=== PATIENT | female | born 1935 | race Caucasian/White ===

== ENCOUNTER 2020-09-16 05:29 | Emergency (ER) | payer MEDICARE, SELFPAY ==
[2020-09-16] VITALS (67 sets, daily range): BP systolic 58–111; BP diastolic 38–59; PULSE 41–119; RESP 8–37; TEMP 35.2–36.6; O2SAT 65–99; BMI 22.4
--- NOTE | 2020-09-16 05:39 | ED.GENADULT ---
HPI - General Adult <Geoff Agosto DO - Last Filed: 09/16/20 19:01> General Chief complaint: GI Bleed Stated complaint: Rectal Bleeding Time Seen by Provider: 09/16/20 05:37 History of Present Illness HPI narrative: Patient is an 85-year-old female. She is on anticoagulation secondary to pacemaker placement/AFib. She does have a history of diverticulosis. Has also had hemorrhoids in the past. Patient was brought to the emergency department this morning by EMS after they were called to the hotel room where she was staying by the patient's daughter who was with her. Overnight the patient got up to use the restroom and per report had several episodes of diarrhea of which when the lights were turned on were bright red and also had dark colored stools as well. The bloody stools continued so the daughter called EMS. Upon EMS arrival they stated that the patient was alert and oriented however was hypotensive with systolic blood pressures in the 70s. They were unable to obtain IV access after 3 tries. Patient has had bloody stool in the ambulance. She denies chest pain. Denies shortness of breath. Related Data Allergies Allergy/AdvReac Type Severity Reaction Status Date / Time scopolamine AdvReac Hallucinati Verified 09/16/20 10:28 ng Review of Systems <Geoff Agosto DO - Last Filed: 09/16/20 19:01> Constitutional Constitutional: Denies fever(s) Eyes Eyes: Reports system reviewed and no additional complaints, except as documented ENT Ears, Nose, Mouth, and Throat: Reports system reviewed and no additional complaints, except as documented Cardiovascular Cardiovascular: Reports system reviewed and no additional complaints, except as documented Respiratory Respiratory: Reports system reviewed and no additional complaints, except as documented Gastrointestinal Gastrointestinal: Denies abdominal pain, Reports hematochezia and Denies vomiting Genitourinary Genitourinary: Reports system reviewed and no additional complaints, except as documented Musculoskeletal Musculoskeletal: Reports system reviewed and no additional complaints, except as documented Integumentary/Breasts Skin/Breast: Reports system reviewed and no additional complaints, except as documented Neurologic Neurologic: Reports system reviewed and no additional complaints, except as documented Psychiatric Psychiatric: Reports system reviewed and no additional complaints, except as documented Endocrine Endocrine: Reports system reviewed and no additional complaints, except as documented Hematologic/Lymphatic On Anticoagulants: Yes Allergic/Immunologic Allergic/Immunologic: Reports system reviewed and no additional complaints, except as documented Patient History <DO Jose Garcia Last Filed: 09/16/20 19:01> Medical History Congestive heart failure COPD (chronic obstructive pulmonary disease) Diverticulosis Hypertension Psoriasis Surgical History (Updated 09/16/20 @ 08:21 by Geoff Agosto DO) History of permanent cardiac pacemaker placement Social History Smoking Status: Former smoker Exam <DO Jose Garcia Last Filed: 09/16/20 19:01> Initial Vital Signs Initial Vital Signs: Vital Signs Temperature 96.3 F L 09/16/20 05:35 Pulse Rate 91 H 09/16/20 05:35 Respiratory Rate 22 09/16/20 05:35 Blood Pressure 87/50 L 09/16/20 05:35 Pulse Oximetry 97 09/16/20 05:35 Const General: cooperative and ill appearing [facility] Head: normal to inspection and normocephalic Eyes General: appearance normal, both eyes and all related structures Neck Neck: normal visual inspection Chest Chest: normal inspection of the chest Resp Effort & Inspection: not labored and not tachypneic Cardio Rate: regular rate Other: Paced rhythm GI Inspection: normal to inspection Palpation: soft Rectal Exam: other (Bright red blood) External Female Exam: normal external appearance Back/Spine/Pelvis Back: normal to inspection Skin Other: Patient does have wrapping bilateral lower extremities that family states is secondary to ulcerations. Neuro General: patient alert, patient awake and patient oriented x3 Extrem General: capillary refill normal Other: Upper extremities are unremarkable. Lower extremities have bandages in place secondary to posterior ulcerations per family. Psych Appearance: grossly normal <Karlee Cruz DO - Last Filed: 09/16/20 18:51> Initial Vital Signs Initial Vital Signs: Vital Signs Temperature 96.3 F L 09/16/20 05:35 Pulse Rate 91 H 09/16/20 05:35 Respiratory Rate 22 09/16/20 05:35 Blood Pressure 87/50 L 09/16/20 05:35 Pulse Oximetry 97 09/16/20 05:35 Procedures <DO Jose Garcia Last Filed: 09/16/20 19:01> Central Line Placement Right Femoral: Time Out Performed: Yes Patient Placed on Monitor/Pulse Ox: Yes MD Prep: mask, gown and gloves Central Line Prep: Povidone-Iodine 1% and sterile drapes applied Local Anesthetic: lidocaine 1% Amount of anesthesia used (mL): 4 Ultrasound Used for Placement: Yes Central Line Lumen Inserted: triple Post Procedure: sutured in place, good blood return, all ports aspirated, flushed, capped and sterile dressing applied Patient Tolerated Procedure: Well Complications: none Course <Geoff Agosto DO - Last Filed: 09/16/20 19:01> Orders Ordered: ED Orders 09/16/20 10:02 ABG [Arterial Blood Gas] Stat Discontinued Medications Furosemide (Furosemide 40 Mg/4 Ml Vial) 20 mg IV NOW ONE Stop: 09/16/20 09:41 Last Admin: 09/16/20 10:36 Dose: Not Given Documented by: MARIELY Sodium Chloride (Normal Saline 0.9%) 1,000 mls @ 125 mls/hr IV CONT ROZINA Last Infusion: 09/16/20 10:35 Dose: 0 mls/hr Documented by: Infusion: 09/16/20 10:34 Dose: 0 mls/hr Documented by: Admin: 09/16/20 08:30 Dose: 125 mls/hr Documented by: MARIELY Sodium Chloride (Normal Saline 0.9%) 1,000 mls @ 1,000 mls/hr IV BOLUS ONE Stop: 09/16/20 07:00 Last Infusion: 09/16/20 07:20 Dose: 0 mls/hr Documented by: Admin: 09/16/20 05:50 Dose: 1,000 mls/hr Documented by: MAIKOL Prothrombin Complex Concent ( Human) 2,000 unit/Miscellaneous 80 mls @ 440.892 mls/hr IV NOW ONE; Protocol Stop: 09/16/20 07:11 Last Infusion: 09/16/20 07:50 Dose: 0 unit/kg/min, 0 mls/hr Documented by: Admin: 09/16/20 07:30 Dose: 3 unit/kg/min, 440.892 mls/hr Documented by: MARIELY Norepinephrine Bitartrate 4 mg (/ Dextrose) 254 mls @ 30.48 mls/hr IV TITRATE ROZINA; Protocol Last Titration: 09/16/20 10:35 Dose: 0 mcg/min, 0 mls/hr Documented by: Titration: 09/16/20 10:35 Dose: 0 mcg/min, 0 mls/hr Documented by: Admin: 09/16/20 08:58 Dose: 5 mcg/min, 19.05 mls/hr Documented by: MARIELY Morphine Sulfate (Morphine 2 Mg/Ml Inj) 2 mg IV NOW ONE Stop: 09/16/20 09:10 Last Admin: 09/16/20 09:00 Dose: 2 mg Documented by: MARIELY Morphine Sulfate (Morphine 2 Mg/Ml Inj) 2 mg IV NOW ONE Stop: 09/16/20 10:00 Last Admin: 09/16/20 10:03 Dose: 2 mg Documented by: MARIELY Vital Signs Vital signs: Vital Signs - 8 hr 09/16/20 05:35 09/16/20 05:36 09/16/20 05:46 Temperature 96.3 F L Pulse Rate 91 H 58 L 91 H Respiratory Rate 22 12 Blood Pressure 87/50 L 85/52 L 82/53 L Pulse Oximetry 97 93 09/16/20 05:50 09/16/20 06:00 09/16/20 06:10 Temperature Pulse Rate 93 H 96 H 99 H Respiratory Rate 12 20 26 H Blood Pressure 87/50 L 78/47 L 75/48 L Pulse Oximetry 09/16/20 06:20 09/16/20 06:30 09/16/20 06:36 Temperature Pulse Rate 97 H 91 H 96 H Respiratory Rate 16 17 37 H Blood Pressure 78/53 L 70/38 L 71/38 L Pulse Oximetry 09/16/20 06:40 09/16/20 06:45 09/16/20 06:50 Temperature Pulse Rate 94 H 108 H 98 H Respiratory Rate 21 23 27 H Blood Pressure 72/43 L 58/39 L 65/44 L Pulse Oximetry 09/16/20 06:55 09/16/20 07:00 09/16/20 07:01 Temperature 96.4 F L Pulse Rate 89 105 H 72 Respiratory Rate 30 H 24 18 Blood Pressure 62/41 L 65/48 L 65/48 L Pulse Oximetry 09/16/20 07:03 09/16/20 07:05 09/16/20 07:10 Temperature 96.4 F L Pulse Rate 87 87 119 H Respiratory Rate 17 24 32 H Blood Pressure 65/48 L 73/44 L 67/43 L Pulse Oximetry 09/16/20 07:15 09/16/20 07:16 09/16/20 07:20 Temperature 96.6 F L Pulse Rate 104 H 97 H 99 H Respiratory Rate 29 H 21 22 Blood Pressure 69/44 L 69/44 L 66/44 L Pulse Oximetry 09/16/20 07:25 09/16/20 07:30 09/16/20 07:37 Temperature Pulse Rate 94 H 91 H 95 H Respiratory Rate 19 18 20 Blood Pressure 68/41 L 66/45 L 84/45 L Pulse Oximetry 09/16/20 07:41 09/16/20 07:45 09/16/20 07:47 Temperature 95.3 F L Pulse Rate 86 86 84 Respiratory Rate 21 22 18 Blood Pressure 70/44 L 86/40 L 86/40 L Pulse Oximetry 80 L 09/16/20 07:50 09/16/20 07:55 09/16/20 08:00 Temperature Pulse Rate 89 86 95 H Respiratory Rate 17 20 20 Blood Pressure 91/46 L 78/53 L Pulse Oximetry 89 L 09/16/20 08:01 09/16/20 08:06 09/16/20 08:10 Temperature Pulse Rate 88 99 H Respiratory Rate 23 14 15 Blood Pressure 75/46 L 82/53 L 80/50 L Pulse Oximetry 09/16/20 08:15 09/16/20 08:17 09/16/20 08:20 Temperature Pulse Rate 89 91 H 86 Respiratory Rate 21 15 21 Blood Pressure 79/50 L 74/51 L Pulse Oximetry 09/16/20 08:23 09/16/20 08:27 09/16/20 08:30 Temperature Pulse Rate 86 88 90 Respiratory Rate 15 16 20 Blood Pressure 77/49 L 77/44 L 96/55 L Pulse Oximetry 09/16/20 08:36 09/16/20 08:39 09/16/20 08:40 Temperature 95.8 F L Pulse Rate 88 98 H 93 H Respiratory Rate 20 17 16 Blood Pressure 75/47 L 74/52 L 74/52 L Pulse Oximetry 09/16/20 08:42 09/16/20 08:45 09/16/20 08:46 Temperature 95.8 F L Pulse Rate 90 90 83 Respiratory Rate 19 14 17 Blood Pressure 77/42 L 75/44 L Pulse Oximetry 09/16/20 08:50 09/16/20 08:54 09/16/20 08:55 Temperature Pulse Rate 92 H 90 92 H Respiratory Rate 14 9 L 8 L Blood Pressure 75/48 L 71/47 L 78/49 L Pulse Oximetry 99 09/16/20 09:00 09/16/20 09:05 09/16/20 09:10 Temperature 96.1 F L Pulse Rate 83 75 81 Respiratory Rate 16 16 15 Blood Pressure 80/51 L 90/53 L 89/41 L Pulse Oximetry 79 L 82 L 78 L 09/16/20 09:15 09/16/20 09:20 09/16/20 09:21 Temperature 96.1 F L Pulse Rate 87 83 80 Respiratory Rate 16 22 16 Blood Pressure 100/44 L 91/50 L Pulse Oximetry 83 L 81 L 88 L 09/16/20 09:25 09/16/20 09:30 09/16/20 09:35 Temperature Pulse Rate 41 L 85 82 Respiratory Rate 12 20 13 Blood Pressure 89/51 L 94/51 L 100/59 L Pulse Oximetry 78 L 73 L 96 09/16/20 09:40 09/16/20 09:44 09/16/20 09:45 Temperature 96.1 F L 98 F Pulse Rate 79 88 Respiratory Rate 15 14 Blood Pressure 94/55 L Pulse Oximetry 09/16/20 09:50 09/16/20 09:55 09/16/20 10:00 Temperature Pulse Rate 91 H 90 90 Respiratory Rate 12 16 19 Blood Pressure 87/51 L 99/50 L 111/55 L Pulse Oximetry 65 L 71 L 09/16/20 10:05 09/16/20 10:10 09/16/20 10:15 Temperature 95.9 F L Pulse Rate 84 88 87 Respiratory Rate 17 11 L 17 Blood Pressure 85/47 L 98/53 L 88/53 L Pulse Oximetry 09/16/20 10:20 Temperature Pulse Rate 92 H Respiratory Rate 15 Blood Pressure 88/53 L Pulse Oximetry <Karlee Cruz, DO - Last Filed: 09/16/20 18:51> Orders Ordered: ED Orders 09/16/20 10:02 ABG [Arterial Blood Gas] Stat Discontinued Medications Furosemide (Furosemide 40 Mg/4 Ml Vial) 20 mg IV NOW ONE Stop: 09/16/20 09:41 Last Admin: 09/16/20 10:36 Dose: Not Given Documented by: MARIELY Sodium Chloride (Normal Saline 0.9%) 1,000 mls @ 125 mls/hr IV CONT ROZINA Last Infusion: 09/16/20 10:35 Dose: 0 mls/hr Documented by: Infusion: 09/16/20 10:34 Dose: 0 mls/hr Documented by: Admin: 09/16/20 08:30 Dose: 125 mls/hr Documented by: MARIELY Sodium Chloride (Normal Saline 0.9%) 1,000 mls @ 1,000 mls/hr IV BOLUS ONE Stop: 09/16/20 07:00 Last Infusion: 09/16/20 07:20 Dose: 0 mls/hr Documented by: Admin: 09/16/20 05:50 Dose: 1,000 mls/hr Documented by: MAIKOL Prothrombin Complex Concent ( Human) 2,000 unit/Miscellaneous 80 mls @ 440.892 mls/hr IV NOW ONE; Protocol Stop: 09/16/20 07:11 Last Infusion: 09/16/20 07:50 Dose: 0 unit/kg/min, 0 mls/hr Documented by: Admin: 09/16/20 07:30 Dose: 3 unit/kg/min, 440.892 mls/hr Documented by: MARIELY Norepinephrine Bitartrate 4 mg (/ Dextrose) 254 mls @ 30.48 mls/hr IV TITRATE ROZINA; Protocol Last Titration: 09/16/20 10:35 Dose: 0 mcg/min, 0 mls/hr Documented by: Titration: 09/16/20 10:35 Dose: 0 mcg/min, 0 mls/hr Documented by: Admin: 09/16/20 08:58 Dose: 5 mcg/min, 19.05 mls/hr Documented by: MARIELY Morphine Sulfate (Morphine 2 Mg/Ml Inj) 2 mg IV NOW ONE Stop: 09/16/20 09:10 Last Admin: 09/16/20 09:00 Dose: 2 mg Documented by: MARIELY Morphine Sulfate (Morphine 2 Mg/Ml Inj) 2 mg IV NOW ONE Stop: 09/16/20 10:00 Last Admin: 09/16/20 10:03 Dose: 2 mg Documented by: MARIELY Vital Signs Vital signs: Vital Signs - 8 hr 09/16/20 05:35 09/16/20 05:36 09/16/20 05:46 Temperature 96.3 F L Pulse Rate 91 H 58 L 91 H Respiratory Rate 22 12 Blood Pressure 87/50 L 85/52 L 82/53 L Pulse Oximetry 97 93 09/16/20 05:50 09/16/20 06:00 09/16/20 06:10 Temperature Pulse Rate 93 H 96 H 99 H Respiratory Rate 12 20 26 H Blood Pressure 87/50 L 78/47 L 75/48 L Pulse Oximetry 09/16/20 06:20 09/16/20 06:30 09/16/20 06:36 Temperature Pulse Rate 97 H 91 H 96 H Respiratory Rate 16 17 37 H Blood Pressure 78/53 L 70/38 L 71/38 L Pulse Oximetry 09/16/20 06:40 09/16/20 06:45 09/16/20 06:50 Temperature Pulse Rate 94 H 108 H 98 H Respiratory Rate 21 23 27 H Blood Pressure 72/43 L 58/39 L 65/44 L Pulse Oximetry 09/16/20 06:55 09/16/20 07:00 09/16/20 07:01 Temperature 96.4 F L Pulse Rate 89 105 H 72 Respiratory Rate 30 H 24 18 Blood Pressure 62/41 L 65/48 L 65/48 L Pulse Oximetry 09/16/20 07:03 09/16/20 07:05 09/16/20 07:10 Temperature 96.4 F L Pulse Rate 87 87 119 H Respiratory Rate 17 24 32 H Blood Pressure 65/48 L 73/44 L 67/43 L Pulse Oximetry 09/16/20 07:15 09/16/20 07:16 09/16/20 07:20 Temperature 96.6 F L Pulse Rate 104 H 97 H 99 H Respiratory Rate 29 H 21 22 Blood Pressure 69/44 L 69/44 L 66/44 L Pulse Oximetry 09/16/20 07:25 09/16/20 07:30 09/16/20 07:37 Temperature Pulse Rate 94 H 91 H 95 H Respiratory Rate 19 18 20 Blood Pressure 68/41 L 66/45 L 84/45 L Pulse Oximetry 09/16/20 07:41 09/16/20 07:45 09/16/20 07:47 Temperature 95.3 F L Pulse Rate 86 86 84 Respiratory Rate 21 22 18 Blood Pressure 70/44 L 86/40 L 86/40 L Pulse Oximetry 80 L 09/16/20 07:50 09/16/20 07:55 09/16/20 08:00 Temperature Pulse Rate 89 86 95 H Respiratory Rate 17 20 20 Blood Pressure 91/46 L 78/53 L Pulse Oximetry 89 L 09/16/20 08:01 09/16/20 08:06 09/16/20 08:10 Temperature Pulse Rate 88 99 H Respiratory Rate 23 14 15 Blood Pressure 75/46 L 82/53 L 80/50 L Pulse Oximetry 09/16/20 08:15 09/16/20 08:17 09/16/20 08:20 Temperature Pulse Rate 89 91 H 86 Respiratory Rate 21 15 21 Blood Pressure 79/50 L 74/51 L Pulse Oximetry 09/16/20 08:23 09/16/20 08:27 09/16/20 08:30 Temperature Pulse Rate 86 88 90 Respiratory Rate 15 16 20 Blood Pressure 77/49 L 77/44 L 96/55 L Pulse Oximetry 09/16/20 08:36 09/16/20 08:39 09/16/20 08:40 Temperature 95.8 F L Pulse Rate 88 98 H 93 H Respiratory Rate 20 17 16 Blood Pressure 75/47 L 74/52 L 74/52 L Pulse Oximetry 09/16/20 08:42 09/16/20 08:45 09/16/20 08:46 Temperature 95.8 F L Pulse Rate 90 90 83 Respiratory Rate 19 14 17 Blood Pressure 77/42 L 75/44 L Pulse Oximetry 09/16/20 08:50 09/16/20 08:54 09/16/20 08:55 Temperature Pulse Rate 92 H 90 92 H Respiratory Rate 14 9 L 8 L Blood Pressure 75/48 L 71/47 L 78/49 L Pulse Oximetry 99 09/16/20 09:00 09/16/20 09:05 09/16/20 09:10 Temperature 96.1 F L Pulse Rate 83 75 81 Respiratory Rate 16 16 15 Blood Pressure 80/51 L 90/53 L 89/41 L Pulse Oximetry 79 L 82 L 78 L 09/16/20 09:15 09/16/20 09:20 09/16/20 09:21 Temperature 96.1 F L Pulse Rate 87 83 80 Respiratory Rate 16 22 16 Blood Pressure 100/44 L 91/50 L Pulse Oximetry 83 L 81 L 88 L 09/16/20 09:25 09/16/20 09:30 09/16/20 09:35 Temperature Pulse Rate 41 L 85 82 Respiratory Rate 12 20 13 Blood Pressure 89/51 L 94/51 L 100/59 L Pulse Oximetry 78 L 73 L 96 09/16/20 09:40 09/16/20 09:44 09/16/20 09:45 Temperature 96.1 F L 98 F Pulse Rate 79 88 Respiratory Rate 15 14 Blood Pressure 94/55 L Pulse Oximetry 09/16/20 09:50 09/16/20 09:55 09/16/20 10:00 Temperature Pulse Rate 91 H 90 90 Respiratory Rate 12 16 19 Blood Pressure 87/51 L 99/50 L 111/55 L Pulse Oximetry 65 L 71 L 09/16/20 10:05 09/16/20 10:10 09/16/20 10:15 Temperature 95.9 F L Pulse Rate 84 88 87 Respiratory Rate 17 11 L 17 Blood Pressure 85/47 L 98/53 L 88/53 L Pulse Oximetry 09/16/20 10:20 Temperature Pulse Rate 92 H Respiratory Rate 15 Blood Pressure 88/53 L Pulse Oximetry Medical Decision Making <Geoff Agosto, - Last Filed: 09/16/20 19:01> Lab Data Lab results reviewed: Yes I reviewed the patient's lab results. Result diagrams: 09/16/20 08:53 09/16/20 08:53 Labs: Lab Results 09/16/20 09/16/20 09/16/20 Range/Units 06:00 06:00 06:20 WBC 6.7 (4.5-11.0) X10^3/uL RBC 3.66 L (4.0-5.2) X10^6/uL Hgb 9.4 L (12.0-16.0) g/dL Hct 31.3 L (36-46) % MCV 85.4 (80-100) fL MCH 25.6 L (26-34) PG MCHC 30.0 (30-36) % RDW 21.1 H (11.6-14.8) % Plt Count 124 L (150-400) X10^3/uL Neut % (Auto) Not Reportable Lymph % (Auto) Not Reportable [place] % (Auto) Not Reportable Eos % (Auto) Not Reportable Baso % (Auto) Not Reportable Lymph # (Auto) Not Reportable [place] # (Auto) Not Reportable Baso # (Auto) Not Reportable Total Counted 100 Seg Neutrophils % 74.0 H (38-70) % Lymphocytes % (Manual) 17.0 L (25-45) % Monocytes % (Manual) 9.0 (2-11) % Neutrophils # (Manual) [id number] [id number]) /uL Hypersegmented Neuts 2+ RBC Morphology See below Hypochromasia 1+ H Anisocytosis 2+ H PT 51.1 H (10.1-12.7) SECONDS INR 4.3 H (0.9-1.3) APTT 41 H (26.4-36.2) SECONDS ABG pH (7.35-7.45) ABG pCO2 (35-45) mmHg ABG pO2 (80-100) mmHg ABG HCO3 (22-26) mmol/L ABG Total CO2 (21-31) mmol/L ABG O2 Saturation (95-100) % ABG Base Excess (-2-2) mmol/L FiO2 Sodium 140 (137-145) mmol/L Potassium 5.2 H (3.4-5.1) mmol/L Chloride 112 H (98-107) mmol/L Carbon Dioxide 21 L (22-32) mmol/L BUN 42 H (7-17) mg/dL Creatinine 1.05 H (0.52-1.04) mg/dL Estimated GFR 49.7 L (>60) mL/min BUN/Creatinine Ratio 40.0 H (6-22) Glucose 92 (80-110) mg/dL Lactate (0.7-2.1) mmol/L Calcium 7.9 L (8.4-10.2) mg/dL Total Bilirubin 0.8 (0.2-1.3) mg/dL AST 27 (14-36) IU/L ALT 11 (<35) IU/L Alkaline Phosphatase 105 (38-126) U/L NT-Pro-B Natriuret Pep (<450) pg/mL Total Protein 5.5 L (6.3-8.2) g/dL Albumin 2.4 L (3.5-5.0) g/dL Globulin 3.1 (1.7-4.1) g/dL Albumin/Globulin Ratio 0.8 L (1.0-2.8) Lipase 70 (23-300) U/L Urine Color Urine Appearance Urine pH (4.5-8.0) Ur Specific [place] (1.000-1.035) Urine Protein (Negative) Urine Glucose (UA) (Negative) g/dL Urine Ketones (NEGATIVE) Urine Occult Blood (Negative) Urine Nitrate (Negative) Urine Bilirubin (NEGATIVE) Urine Urobilinogen (0.2) E.U./dL Ur Leukocyte Esterase (NEGATIVE) Urine RBC (0-5/HPF) Urine WBC (0-5/HPF) Ur Squamous Epith Cells (0-5/HPF) Amorphous Sediment Urine Bacteria (None) Hyaline Casts (None) Urine Yeast (None) Ur Culture Indicated? SARS-CoV-2 (PCR) (Negative) Blood Type Antibody Screen Crossmatch 09/16/20 09/16/20 09/16/20 Range/Units 06:20 06:20 08:01 WBC (4.5-11.0) X10^3/uL RBC (4.0-5.2) X10^6/uL Hgb (12.0-16.0) g/dL Hct (36-46) % MCV (80-100) fL MCH (26-34) PG MCHC (30-36) % RDW (11.6-14.8) % Plt Count (150-400) X10^3/uL Neut % (Auto) Lymph % (Auto) [place] % (Auto) Eos % (Auto) Baso % (Auto) Lymph # (Auto) [place] # (Auto) Baso # (Auto) Total Counted Seg Neutrophils % (38-70) % Lymphocytes % (Manual) (25-45) % Monocytes % (Manual) (2-11) % Neutrophils # (Manual) ([phone]) /uL Hypersegmented Neuts RBC Morphology Hypochromasia Anisocytosis PT (10.1-12.7) SECONDS INR (0.9-1.3) APTT (26.4-36.2) SECONDS ABG pH (7.35-7.45) ABG pCO2 (35-45) mmHg ABG pO2 (80-100) mmHg ABG HCO3 (22-26) mmol/L ABG Total CO2 (21-31) mmol/L ABG O2 Saturation (95-100) % ABG Base Excess (-2-2) mmol/L FiO2 Sodium (137-145) mmol/L Potassium (3.4-5.1) mmol/L Chloride (98-107) mmol/L Carbon Dioxide (22-32) mmol/L BUN (7-17) mg/dL Creatinine (0.52-1.04) mg/dL Estimated GFR (>60) mL/min BUN/Creatinine Ratio (6-22) Glucose (80-110) mg/dL Lactate 3.7 H (0.7-2.1) mmol/L Calcium (8.4-10.2) mg/dL Total Bilirubin (0.2-1.3) mg/dL AST (14-36) IU/L ALT (<35) IU/L Alkaline Phosphatase (38-126) U/L NT-Pro-B Natriuret Pep (<450) pg/mL Total Protein (6.3-8.2) g/dL Albumin (3.5-5.0) g/dL Globulin (1.7-4.1) g/dL Albumin/Globulin Ratio (1.0-2.8) Lipase (23-300) U/L Urine Color Yellow Urine Appearance Clear Urine pH 5.0 (4.5-8.0) Ur Specific [place] 1.015 (1.000-1.035) Urine Protein Trace H (Negative) Urine Glucose (UA) Negative (Negative) g/dL Urine Ketones Negative (NEGATIVE) Urine Occult Blood Trace-intact (Negative) Urine Nitrate Negative (Negative) Urine Bilirubin Negative (NEGATIVE) Urine Urobilinogen 0.2 (0.2) E.U./dL Ur Leukocyte Esterase Trace H (NEGATIVE) Urine RBC 0-1/hpf (0-5/HPF) Urine WBC 0-1/hpf (0-5/HPF) Ur Squamous Epith Cells 0-1 /hpf (0-5/HPF) Amorphous Sediment 2+ Urine Bacteria Few (2-10) H (None) Hyaline Casts 10-30/lpf (None) Urine Yeast 10-30/hpf H (None) Ur Culture Indicated? Specimen cultured SARS-CoV-2 (PCR) (Negative) Blood Type B Positive Antibody Screen Negative Crossmatch See Detail 09/16/20 09/16/20 09/16/20 Range/Units 08:04 08:53 08:53 WBC (4.5-11.0) X10^3/uL RBC (4.0-5.2) X10^6/uL Hgb 9.6 L (12.0-16.0) g/dL Hct 30.3 L (36-46) % MCV (80-100) fL MCH (26-34) PG MCHC (30-36) % RDW (11.6-14.8) % Plt Count (150-400) X10^3/uL Neut % (Auto) Lymph % (Auto) [place] % (Auto) Eos % (Auto) Baso % (Auto) Lymph # (Auto) [place] # (Auto) Baso # (Auto) Total Counted Seg Neutrophils % (38-70) % Lymphocytes % (Manual) (25-45) % Monocytes % (Manual) (2-11) % Neutrophils # (Manual) ([phone]) /uL Hypersegmented Neuts RBC Morphology Hypochromasia Anisocytosis PT (10.1-12.7) SECONDS INR (0.9-1.3) APTT (26.4-36.2) SECONDS ABG pH (7.35-7.45) ABG pCO2 (35-45) mmHg ABG pO2 (80-100) mmHg ABG HCO3 (22-26) mmol/L ABG Total CO2 (21-31) mmol/L ABG O2 Saturation (95-100) % ABG Base Excess (-2-2) mmol/L FiO2 Sodium (137-145) mmol/L Potassium (3.4-5.1) mmol/L Chloride (98-107) mmol/L Carbon Dioxide (22-32) mmol/L BUN (7-17) mg/dL Creatinine (0.52-1.04) mg/dL Estimated GFR (>60) mL/min BUN/Creatinine Ratio (6-22) Glucose (80-110) mg/dL Lactate 2.7 H (0.7-2.1) mmol/L Calcium (8.4-10.2) mg/dL Total Bilirubin (0.2-1.3) mg/dL AST (14-36) IU/L ALT (<35) IU/L Alkaline Phosphatase (38-126) U/L NT-Pro-B Natriuret Pep (<450) pg/mL Total Protein (6.3-8.2) g/dL Albumin (3.5-5.0) g/dL Globulin (1.7-4.1) g/dL Albumin/Globulin Ratio (1.0-2.8) Lipase (23-300) U/L Urine Color Urine Appearance Urine pH (4.5-8.0) Ur Specific [place] (1.000-1.035) Urine Protein (Negative) Urine Glucose (UA) (Negative) g/dL Urine Ketones (NEGATIVE) Urine Occult Blood (Negative) Urine Nitrate (Negative) Urine Bilirubin (NEGATIVE) Urine Urobilinogen (0.2) E.U./dL Ur Leukocyte Esterase (NEGATIVE) Urine RBC (0-5/HPF) Urine WBC (0-5/HPF) Ur Squamous Epith Cells (0-5/HPF) Amorphous Sediment Urine Bacteria (None) Hyaline Casts (None) Urine Yeast (None) Ur Culture Indicated? SARS-CoV-2 (PCR) Negative (Negative) Blood Type Antibody Screen Crossmatch 09/16/20 09/16/20 Range/Units 08:53 10:02 WBC (4.5-11.0) X10^3/uL RBC (4.0-5.2) X10^6/uL Hgb (12.0-16.0) g/dL Hct (36-46) % MCV (80-100) fL MCH (26-34) PG MCHC (30-36) % RDW (11.6-14.8) % Plt Count (150-400) X10^3/uL Neut % (Auto) Lymph % (Auto) [place] % (Auto) Eos % (Auto) Baso % (Auto) Lymph # (Auto) [place] # (Auto) Baso # (Auto) Total Counted Seg Neutrophils % (38-70) % Lymphocytes % (Manual) (25-45) % Monocytes % (Manual) (2-11) % Neutrophils # (Manual) (4004-2805) /uL Hypersegmented Neuts RBC Morphology Hypochromasia Anisocytosis PT (10.1-12.7) SECONDS INR (0.9-1.3) APTT (26.4-36.2) SECONDS ABG pH 7.38 (7.35-7.45) ABG pCO2 36.8 (35-45) mmHg ABG pO2 87 (80-100) mmHg ABG HCO3 22 (22-26) mmol/L ABG Total CO2 23 (21-31) mmol/L ABG O2 Saturation 97 (95-100) % ABG Base Excess -3.0 L (-2-2) mmol/L FiO2 21 Sodium 138 (137-145) mmol/L Potassium 5.0 (3.4-5.1) mmol/L Chloride 113 H (98-107) mmol/L Carbon Dioxide 22 (22-32) mmol/L BUN 40 H (7-17) mg/dL Creatinine 0.93 (0.52-1.04) mg/dL Estimated GFR 57.2 L (>60) mL/min BUN/Creatinine Ratio 43.0 H (6-22) Glucose 97 (80-110) mg/dL Lactate (0.7-2.1) mmol/L Calcium 7.1 L (8.4-10.2) mg/dL Total Bilirubin (0.2-1.3) mg/dL AST (14-36) IU/L ALT (<35) IU/L Alkaline Phosphatase (38-126) U/L NT-Pro-B Natriuret Pep 6840 H (<450) pg/mL Total Protein (6.3-8.2) g/dL Albumin (3.5-5.0) g/dL Globulin (1.7-4.1) g/dL Albumin/Globulin Ratio (1.0-2.8) Lipase (23-300) U/L Urine Color Urine Appearance Urine pH (4.5-8.0) Ur Specific [place] (1.000-1.035) Urine Protein (Negative) Urine Glucose (UA) (Negative) g/dL Urine Ketones (NEGATIVE) Urine Occult Blood (Negative) Urine Nitrate (Negative) Urine Bilirubin (NEGATIVE) Urine Urobilinogen (0.2) E.U./dL Ur Leukocyte Esterase (NEGATIVE) Urine RBC (0-5/HPF) Urine WBC (0-5/HPF) Ur Squamous Epith Cells (0-5/HPF) Amorphous Sediment Urine Bacteria (None) Hyaline Casts (None) Urine Yeast (None) Ur Culture Indicated? SARS-CoV-2 (PCR) (Negative) Blood Type Antibody Screen Crossmatch MDM Narrative Medical decision making narrative: Patient's symptoms seem to have started within the past 12 hours. Had multiple episodes of of was reported be right red blood at the hotel prior to arrival here in the ER. She had obvious blood on exam. Her abdomen was soft. No chest pain. No shortness of breath. She is on anticoagulation. Given her presentation an attempt at a right IJ was made however I was unable to easily pass the wire even though according to ultrasound I was in the internal jugular vein. I then transitioned and placed a right femoral triple-lumen without incident. She was given Kcentra. Given her persistent hypotension she was started on blood. Has received 2 units packed red blood cells and a 3rd unit has been ordered and will be transfused. Dr. Suárez with General surgery will come and evaluate the patient in the emergency department. Patient is full code. Care turned over to Dr. Cruz to follow-up and disposition. <Karlee Cruz, DO - Last Filed: 09/16/20 18:51> Lab Data Labs: Lab Results 09/16/20 09/16/20 09/16/20 Range/Units 06:00 06:00 06:20 WBC 6.7 (4.5-11.0) X10^3/uL RBC 3.66 L (4.0-5.2) X10^6/uL Hgb 9.4 L (12.0-16.0) g/dL Hct 31.3 L (36-46) % MCV 85.4 (80-100) fL MCH 25.6 L (26-34) PG MCHC 30.0 (30-36) % RDW 21.1 H (11.6-14.8) % Plt Count 124 L (150-400) X10^3/uL Neut % (Auto) Not Reportable Lymph % (Auto) Not Reportable [place] % (Auto) Not Reportable Eos % (Auto) Not Reportable Baso % (Auto) Not Reportable Lymph # (Auto) Not Reportable [place] # (Auto) Not Reportable Baso # (Auto) Not Reportable Total Counted 100 Seg Neutrophils % 74.0 H (38-70) % Lymphocytes % (Manual) 17.0 L (25-45) % Monocytes % (Manual) 9.0 (2-11) % Neutrophils # (Manual) [id number] ([id number]) /uL Hypersegmented Neuts 2+ RBC Morphology See below Hypochromasia 1+ H Anisocytosis 2+ H PT 51.1 H (10.1-12.7) SECONDS INR 4.3 H (0.9-1.3) APTT 41 H (26.4-36.2) SECONDS ABG pH (7.35-7.45) ABG pCO2 (35-45) mmHg ABG pO2 (80-100) mmHg ABG HCO3 (22-26) mmol/L ABG Total CO2 (21-31) mmol/L ABG O2 Saturation (95-100) % ABG Base Excess (-2-2) mmol/L FiO2 Sodium 140 (137-145) mmol/L Potassium 5.2 H (3.4-5.1) mmol/L Chloride 112 H (98-107) mmol/L Carbon Dioxide 21 L (22-32) mmol/L BUN 42 H (7-17) mg/dL Creatinine 1.05 H (0.52-1.04) mg/dL Estimated GFR 49.7 L (>60) mL/min BUN/Creatinine Ratio 40.0 H (6-22) Glucose 92 (80-110) mg/dL Lactate (0.7-2.1) mmol/L Calcium 7.9 L (8.4-10.2) mg/dL Total Bilirubin 0.8 (0.2-1.3) mg/dL AST 27 (14-36) IU/L ALT 11 (<35) IU/L Alkaline Phosphatase 105 (38-126) U/L NT-Pro-B Natriuret Pep (<450) pg/mL Total Protein 5.5 L (6.3-8.2) g/dL Albumin 2.4 L (3.5-5.0) g/dL Globulin 3.1 (1.7-4.1) g/dL Albumin/Globulin Ratio 0.8 L (1.0-2.8) Lipase 70 (23-300) U/L Urine Color Urine Appearance Urine pH (4.5-8.0) Ur Specific [place] (1.000-1.035) Urine Protein (Negative) Urine Glucose (UA) (Negative) g/dL Urine Ketones (NEGATIVE) Urine Occult Blood (Negative) Urine Nitrate (Negative) Urine Bilirubin (NEGATIVE) Urine Urobilinogen (0.2) E.U./dL Ur Leukocyte Esterase (NEGATIVE) Urine RBC (0-5/HPF) Urine WBC (0-5/HPF) Ur Squamous Epith Cells (0-5/HPF) Amorphous Sediment Urine Bacteria (None) Hyaline Casts (None) Urine Yeast (None) Ur Culture Indicated? SARS-CoV-2 (PCR) (Negative) Blood Type Antibody Screen Crossmatch 09/16/20 09/16/20 09/16/20 Range/Units 06:20 06:20 08:01 WBC (4.5-11.0) X10^3/uL RBC (4.0-5.2) X10^6/uL Hgb (12.0-16.0) g/dL Hct (36-46) % MCV (80-100) fL MCH (26-34) PG MCHC (30-36) % RDW (11.6-14.8) % Plt Count (150-400) X10^3/uL Neut % (Auto) Lymph % (Auto) [place] % (Auto) Eos % (Auto) Baso % (Auto) Lymph # (Auto) [place] # (Auto) Baso # (Auto) Total Counted Seg Neutrophils % (38-70) % Lymphocytes % (Manual) (25-45) % Monocytes % (Manual) (2-11) % Neutrophils # (Manual) ([id number]) /uL Hypersegmented Neuts RBC Morphology Hypochromasia Anisocytosis PT (10.1-12.7) SECONDS INR (0.9-1.3) APTT (26.4-36.2) SECONDS ABG pH (7.35-7.45) ABG pCO2 (35-45) mmHg ABG pO2 (80-100) mmHg ABG HCO3 (22-26) mmol/L ABG Total CO2 (21-31) mmol/L ABG O2 Saturation (95-100) % ABG Base Excess (-2-2) mmol/L FiO2 Sodium (137-145) mmol/L Potassium (3.4-5.1) mmol/L Chloride (98-107) mmol/L Carbon Dioxide (22-32) mmol/L BUN (7-17) mg/dL Creatinine (0.52-1.04) mg/dL Estimated GFR (>60) mL/min BUN/Creatinine Ratio (6-22) Glucose (80-110) mg/dL Lactate 3.7 H (0.7-2.1) mmol/L Calcium (8.4-10.2) mg/dL Total Bilirubin (0.2-1.3) mg/dL AST (14-36) IU/L ALT (<35) IU/L Alkaline Phosphatase (38-126) U/L NT-Pro-B Natriuret Pep (<450) pg/mL Total Protein (6.3-8.2) g/dL Albumin (3.5-5.0) g/dL Globulin (1.7-4.1) g/dL Albumin/Globulin Ratio (1.0-2.8) Lipase (23-300) U/L Urine Color Yellow Urine Appearance Clear Urine pH 5.0 (4.5-8.0) Ur Specific [place] 1.015 (1.000-1.035) Urine Protein Trace H (Negative) Urine Glucose (UA) Negative (Negative) g/dL Urine Ketones Negative (NEGATIVE) Urine Occult Blood Trace-intact (Negative) Urine Nitrate Negative (Negative) Urine Bilirubin Negative (NEGATIVE) Urine Urobilinogen 0.2 (0.2) E.U./dL Ur Leukocyte Esterase Trace H (NEGATIVE) Urine RBC 0-1/hpf (0-5/HPF) Urine WBC 0-1/hpf (0-5/HPF) Ur Squamous Epith Cells 0-1 /hpf (0-5/HPF) Amorphous Sediment 2+ Urine Bacteria Few (2-10) H (None) Hyaline Casts 10-30/lpf (None) Urine Yeast 10-30/hpf H (None) Ur Culture Indicated? Specimen cultured SARS-CoV-2 (PCR) (Negative) Blood Type B Positive Antibody Screen Negative Crossmatch See Detail 09/16/20 09/16/20 09/16/20 Range/Units 08:04 08:53 08:53 WBC (4.5-11.0) X10^3/uL RBC (4.0-5.2) X10^6/uL Hgb 9.6 L (12.0-16.0) g/dL Hct 30.3 L (36-46) % MCV (80-100) fL MCH (26-34) PG MCHC (30-36) % RDW (11.6-14.8) % Plt Count (150-400) X10^3/uL Neut % (Auto) Lymph % (Auto) [place] % (Auto) Eos % (Auto) Baso % (Auto) Lymph # (Auto) [place] # (Auto) Baso # (Auto) Total Counted Seg Neutrophils % (38-70) % Lymphocytes % (Manual) (25-45) % Monocytes % (Manual) (2-11) % Neutrophils # (Manual) ([id number]) /uL Hypersegmented Neuts RBC Morphology Hypochromasia Anisocytosis PT (10.1-12.7) SECONDS INR (0.9-1.3) APTT (26.4-36.2) SECONDS ABG pH (7.35-7.45) ABG pCO2 (35-45) mmHg ABG pO2 (80-100) mmHg ABG HCO3 (22-26) mmol/L ABG Total CO2 (21-31) mmol/L ABG O2 Saturation (95-100) % ABG Base Excess (-2-2) mmol/L FiO2 Sodium (137-145) mmol/L Potassium (3.4-5.1) mmol/L Chloride (98-107) mmol/L Carbon Dioxide (22-32) mmol/L BUN (7-17) mg/dL Creatinine (0.52-1.04) mg/dL Estimated GFR (>60) mL/min BUN/Creatinine Ratio (6-22) Glucose (80-110) mg/dL Lactate 2.7 H (0.7-2.1) mmol/L Calcium (8.4-10.2) mg/dL Total Bilirubin (0.2-1.3) mg/dL AST (14-36) IU/L ALT (<35) IU/L Alkaline Phosphatase (38-126) U/L NT-Pro-B Natriuret Pep (<450) pg/mL Total Protein (6.3-8.2) g/dL Albumin (3.5-5.0) g/dL Globulin (1.7-4.1) g/dL Albumin/Globulin Ratio (1.0-2.8) Lipase (23-300) U/L Urine Color Urine Appearance Urine pH (4.5-8.0) Ur Specific [place] (1.000-1.035) Urine Protein (Negative) Urine Glucose (UA) (Negative) g/dL Urine Ketones (NEGATIVE) Urine Occult Blood (Negative) Urine Nitrate (Negative) Urine Bilirubin (NEGATIVE) Urine Urobilinogen (0.2) E.U./dL Ur Leukocyte Esterase (NEGATIVE) Urine RBC (0-5/HPF) Urine WBC (0-5/HPF) Ur Squamous Epith Cells (0-5/HPF) Amorphous Sediment Urine Bacteria (None) Hyaline Casts (None) Urine Yeast (None) Ur Culture Indicated? SARS-CoV-2 (PCR) Negative (Negative) Blood Type Antibody Screen Crossmatch 09/16/20 09/16/20 Range/Units 08:53 10:02 WBC (4.5-11.0) X10^3/uL RBC (4.0-5.2) X10^6/uL Hgb (12.0-16.0) g/dL Hct (36-46) % MCV (80-100) fL MCH (26-34) PG MCHC (30-36) % RDW (11.6-14.8) % Plt Count (150-400) X10^3/uL Neut % (Auto) Lymph % (Auto) [place] % (Auto) Eos % (Auto) Baso % (Auto) Lymph # (Auto) [place] # (Auto) Baso # (Auto) Total Counted Seg Neutrophils % (38-70) % Lymphocytes % (Manual) (25-45) % Monocytes % (Manual) (2-11) % Neutrophils # (Manual) (5811-3599) /uL Hypersegmented Neuts RBC Morphology Hypochromasia Anisocytosis PT (10.1-12.7) SECONDS INR (0.9-1.3) APTT (26.4-36.2) SECONDS ABG pH 7.38 (7.35-7.45) ABG pCO2 36.8 (35-45) mmHg ABG pO2 87 (80-100) mmHg ABG HCO3 22 (22-26) mmol/L ABG Total CO2 23 (21-31) mmol/L ABG O2 Saturation 97 (95-100) % ABG Base Excess -3.0 L (-2-2) mmol/L FiO2 21 Sodium 138 (137-145) mmol/L Potassium 5.0 (3.4-5.1) mmol/L Chloride 113 H (98-107) mmol/L Carbon Dioxide 22 (22-32) mmol/L BUN 40 H (7-17) mg/dL Creatinine 0.93 (0.52-1.04) mg/dL Estimated GFR 57.2 L (>60) mL/min BUN/Creatinine Ratio 43.0 H (6-22) Glucose 97 (80-110) mg/dL Lactate (0.7-2.1) mmol/L Calcium 7.1 L (8.4-10.2) mg/dL Total Bilirubin (0.2-1.3) mg/dL AST (14-36) IU/L ALT (<35) IU/L Alkaline Phosphatase (38-126) U/L NT-Pro-B Natriuret Pep 6840 H (<450) pg/mL Total Protein (6.3-8.2) g/dL Albumin (3.5-5.0) g/dL Globulin (1.7-4.1) g/dL Albumin/Globulin Ratio (1.0-2.8) Lipase (23-300) U/L Urine Color Urine Appearance Urine pH (4.5-8.0) Ur Specific [place] (1.000-1.035) Urine Protein (Negative) Urine Glucose (UA) (Negative) g/dL Urine Ketones (NEGATIVE) Urine Occult Blood (Negative) Urine Nitrate (Negative) Urine Bilirubin (NEGATIVE) Urine Urobilinogen (0.2) E.U./dL Ur Leukocyte Esterase (NEGATIVE) Urine RBC (0-5/HPF) Urine WBC (0-5/HPF) Ur Squamous Epith Cells (0-5/HPF) Amorphous Sediment Urine Bacteria (None) Hyaline Casts (None) Urine Yeast (None) Ur Culture Indicated? SARS-CoV-2 (PCR) (Negative) Blood Type Antibody Screen Crossmatch Imaging Data CT scan - abdomen/pelvis: Radiologist's Impression: PROCEDURE: CT ABDOMEN PELVIS W CON INDICATIONS: Rectal bleeding TECHNIQUE: After the administration of IV contrast, axial sections were acquired from the lung bases to the pubic symphysis. Coronal and sagittal reformats were performed. For radiation dose reduction, the following was used: automated exposure control, adjustment of mA and/or kV according to patient size. COMPARISON: None. FINDINGS: Image quality: Excellent. Lung bases: Moderate right and minimal left pleural effusion. Superimposed consolidation is noted on the right. Heart: The heart is enlarged. ABDOMEN: Liver: Liver is shrunken and nodular in appearance. There is a low-attenuation focus along the anterior aspect on series 2, image 30 measuring 9 mm. Hounsfield units are slightly greater than expected for a simple cyst. Gallbladder: The gallbladder has been removed. Biliary ducts: Unremarkable. Pancreas: Unremarkable. Spleen: Unremarkable. Adrenal Glands: Unremarkable. Kidneys and Ureters: Mild bilateral renal atrophy. Left renal cysts are present, the largest measuring 3.3 cm. Stomach and Bowel: Stomach, small bowel loops, and colon are unremarkable. Scattered colonic diverticula are present. Peritoneum: There is mild Zaira splenic minimal perihepatic fluid. Minimal to mild scattered areas of fluid are noted within the abdomen and pelvis. No free air. Ventral Wall: No hernia. Abdominal Nodes: No retroperitoneal or mesenteric adenopathy by size criteria. Vessels: Aorta and inferior vena cava are normal in size. PELVIS: Pelvic Organs: Unremarkable. Bladder: Bladder is collapsed with a Jacques catheter, limiting evaluation. Pelvic Nodes: No enlarged lymph nodes. Miscellaneous: No inguinal hernias are seen. Subcutaneous fat stranding is present suggestive of overall edema or protein imbalance. Bones: Unremarkable. IMPRESSION: 1. Moderate right and minimal left pleural effusions. Superimposed consolidation is noted on the right possibly related to atelectasis and/or pneumonia. 2. Diverticulosis. No definitively identified area of bowel wall thickening or inflammation. 3. Nodular appearance of the liver suggestive of cirrhosis. Minimal to mild scattered areas of abdominal and pelvic free fluid. Dictated by: Charleen Burnett M.D. on 09/16/2020 at 8:28 ECG Data Interpretation: Paced rhythm rate [address] changes MDM Narrative Medical decision making narrative: Patient's symptoms seem to have started within the past 12 hours. Had multiple episodes of of was reported be right red blood at the hotel prior to arrival here in the ER. She had obvious blood on exam. Her abdomen was soft. No chest pain. No shortness of breath. She is on anticoagulation. Given her presentation an attempt at a right IJ was made however I was unable to easily pass the wire even though according to ultrasound I was in the internal jugular vein. I then transitioned and placed a right femoral triple-lumen without incident. She was given Kcentra. Given her persistent hypotension she was started on blood. Has received 2 units packed red blood cells and a 3rd unit has been ordered and will be transfused. Dr. Suárez with General surgery will come and evaluate the patient in the emergency department. Patient is full code. Care turned over to Dr. Cruz to follow-up and disposition. Dr Cruz-I received sign-out from Dr. Agosto seen and evaluated patient myself. I have discussed with both patient and daughter at bedside she is a full code. She is currently getting her 3rd unit of blood with continued pressures in the 70s to 80s. Levophed is started. Repeat blood work shows similar H&H. She has minimal urine output. Surgery at bedside and did not find hemorrhoid maroon bleeding. At this time nothing for him today. Fortunately the [facility] has an ICU bed. 0845 I have spoken with Interventional Radiology , happy to be a consult on the patient when she arrived 0915 Dr weller, [employer], updated patient's symptoms in test results and happily except Patient received 3 units of blood and a L of saline. She has some mild crackles in her bases along with pleural effusions noted on CT had an elevated BNP. She is given Lasix 20 mg <Karlee Cruz, DO - Last Filed: 09/16/20 18:51> Critical Care Time Critical Care Time: Yes Total Critical Care Time: 180 Attestation: The high probability of a clinically significant, sudden or life threatening deterioration of the [cardiovascular] system(s) required my full and direct attention, intervention and personal management. The aggregate critical care time was 180 minutes. This time is in addition to time spent performing reported procedures but includes the following: [x] Data Review and interpretation [x] Patient assessment and monitoring of vital signs [x] Documentation [x] Medication orders and management Discharge Plan Departure Patient Disposition: [facility] Clinical Impression: Acute GI bleeding
[2020-09-16] MEDS: SODIUM CHLORIDE 0.9% 1,000 ML 1000 ML IV (05:50)
[2020-09-16 06:13] LABS: Hematocrit 31.3 % (36-46); Hemoglobin 9.4 g/dL (12.0-16.0); Mean Corpuscular Hemoglobin 25.6 PG (26-34); Mean Corpuscular Volume 85.4 fL (80-100); Platelet Count 124 X10^3/uL (150-400); Red Blood Cell Count 3.66 X10^6/uL (4.0-5.2); Red Cell Distribution Width 21.1 % (11.6-14.8); White Blood Cell Count 6.7 X10^3/uL (4.5-11.0)
[2020-09-16 06:17] LABS: Add Manual Diff / Slide Review YES
[2020-09-16 06:32] LABS: Alanine Aminotransferase 11 IU/L (<35); Albumin 2.4 g/dL (3.5-5.0); Albumin Globulin Ratio 0.8 (1.0-2.8); Alkaline Phosphatase 105 U/L (38-126); Aspartate Aminotransferase 27 IU/L (14-36); Bilirubin Total 0.8 mg/dL (0.2-1.3); Blood Urea Nitrogen 42 mg/dL (7-17); Calcium 7.9 mg/dL (8.4-10.2); Carbon Dioxide 21 mmol/L (22-32); Chloride 112 mmol/L (98-107); Estimated Glomerular Filt Rate 49.7 mL/min (>60); Globulin 3.1 g/dL (1.7-4.1); Glucose 92 mg/dL (80-110); HEMOLYSIS 30 (0-50); Lipase 70 U/L (23-300); Potassium 5.2 mmol/L (3.4-5.1); Sodium 140 mmol/L (137-145); Total Protein 5.5 g/dL (6.3-8.2)
[2020-09-16] MEDS: LIDOCAINE 1% (PF) 12 ML (06:35)
[2020-09-16 06:40] LABS: INR 4.3 (0.9-1.3); Prothrombin Time 51.1 SECONDS (10.1-12.7)
[2020-09-16 06:43] LABS: PTT Partial Thromboplastin Tim 41 SECONDS (26.4-36.2)
[2020-09-16 06:48] LABS: Anisocytosis 2+; Neutrophils Absolute Manual 4958 /uL (3000-5900); Total Cells Counted 100
[2020-09-16 06:49] LABS: Hypersegmented Neutrophils 2+; Hypochromasia 1+
[2020-09-16 07:02] LABS: Lactate (Lactic Acid) 3.7 mmol/L (0.7-2.1)
[2020-09-16] MEDS: MORPHINE 2 MG/ML INJ (07:29)
[2020-09-16] MEDS: PROTHROMBIN CPLX(PCC)4FACT 2,000 UNIT in ISOOSMOTIC VEHICLE 0 ML 440.892 ML IV (07:30)
--- NOTE | 2020-09-16 07:43 | PC.NURSE ---
Dr. Agosto placed central line to right femoral vein
[2020-09-16 08:14] LABS: Appearance Urine UA CLEAR; Bilirubin Urine UA NEGATIVE (NEGATIVE); Color Urine UA YELLOW; Glucose Urine UA NEGATIVE (Negative); Ketones Urine UA NEGATIVE (NEGATIVE); Leukocyte Esterase Urine UA TRACE (NEGATIVE); Nitrite Urine UA NEGATIVE (Negative); Occult Blood Urine UA TRACE-INTACT (Negative); Protein Urine UA TRACE (Negative); Specific Gravity Urine UA 1.015 (1.000-1.035); Urobilinogen Urine UA 0.2 E.U./dL (0.2)
--- NOTE | 2020-09-16 08:21 | DI.CT.S_ITS ---
PROCEDURE: CT ABDOMEN PELVIS W CON INDICATIONS: Rectal bleeding TECHNIQUE: After the administration of IV contrast, axial sections were acquired from the lung bases to the pubic symphysis. Coronal and sagittal reformats were performed. For radiation dose reduction, the following was used: automated exposure control, adjustment of mA and/or kV according to patient size. COMPARISON: None. FINDINGS: Image quality: Excellent. Lung bases: Moderate right and minimal left pleural effusion. Superimposed consolidation is noted on the right. Heart: The heart is enlarged. ABDOMEN: Liver: Liver is shrunken and nodular in appearance. There is a low-attenuation focus along the anterior aspect on series 2, image 30 measuring 9 mm. Hounsfield units are slightly greater than expected for a simple cyst. Gallbladder: The gallbladder has been removed. Biliary ducts: Unremarkable. Pancreas: Unremarkable. Spleen: Unremarkable. Adrenal Glands: Unremarkable. Kidneys and Ureters: Mild bilateral renal atrophy. Left renal cysts are present, the largest measuring 3.3 cm. Stomach and Bowel: Stomach, small bowel loops, and colon are unremarkable. Scattered colonic diverticula are present. Peritoneum: There is mild Zaira splenic minimal perihepatic fluid. Minimal to mild scattered areas of fluid are noted within the abdomen and pelvis. No free air. Ventral Wall: No hernia. Abdominal Nodes: No retroperitoneal or mesenteric adenopathy by size criteria. Vessels: Aorta and inferior vena cava are normal in size. PELVIS: Pelvic Organs: Unremarkable. Bladder: Bladder is collapsed with a Jacques catheter, limiting evaluation. Pelvic Nodes: No enlarged lymph nodes. Miscellaneous: No inguinal hernias are seen. Subcutaneous fat stranding is present suggestive of overall edema or protein imbalance. Bones: Unremarkable. IMPRESSION: 1. Moderate right and minimal left pleural effusions. Superimposed consolidation is noted on the right possibly related to atelectasis and/or pneumonia. 2. Diverticulosis. No definitively identified area of bowel wall thickening or inflammation. 3. Nodular appearance of the liver suggestive of cirrhosis. Minimal to mild scattered areas of abdominal and pelvic free fluid. Dictated by: Charleen Burnett M.D. on 09/16/2020 at 8:28 Approved by: Charleen Burnett M.D. on 09/16/2020 at 8:38
[2020-09-16] MEDS: SODIUM CHLORIDE 0.9% 1,000 ML 125 ML IV (08:30)
[2020-09-16 08:31] LABS: Reflexed Lactate in 2 Hours Y
[2020-09-16 08:44] LABS: Amorphous Sediment Urine 2+; Bacteria Urine Few (2-10); Hyaline Casts Urine 10-30/LPF; RBC Urine 0-1/HPF (0-5/HPF); Squamous Epithelial Cell Urine 0-1 /HPF (0-5/HPF); WBC Urine 0-1/HPF (0-5/HPF)
[2020-09-16 08:45] LABS: Culture Indicated Urine Specimen Cultured
[2020-09-16] MEDS: NOREPINEPHRINE 4 MG in DEXTROSE 5% IN WATER 250 ML 19.05 ML IV (08:58)
[2020-09-16] MEDS: MORPHINE 2 MG/ML INJ IV ×2 (09:00→10:03)
[2020-09-16 09:06] LABS: Hematocrit 30.3 % (36-46); Hemoglobin 9.6 g/dL (12.0-16.0)
[2020-09-16 09:17] LABS: Blood Urea Nitrogen 40 mg/dL (7-17); Calcium 7.1 mg/dL (8.4-10.2); Carbon Dioxide 22 mmol/L (22-32); Chloride 113 mmol/L (98-107); Estimated Glomerular Filt Rate 57.2 mL/min (>60); Glucose 97 mg/dL (80-110); HEMOLYSIS < 15 (0-50); Lactate 2HR (Lactic Acid Rflx) 2.7 mmol/L (0.7-2.1); Sodium 138 mmol/L (137-145)
[2020-09-16 09:30] LABS: NT-proBNP (BNP-Adult 18+) 6840 pg/mL (<450)
[2020-09-16 09:40] LABS: COVID19 - ADMIT (NP swab/PCR) Negative (Negative)
[2020-09-16 10:40] LABS: Fractionated Inspired Oxygen 21; HCO3 ABG 22 mmol/L (22-26); Oxygen Saturation ABG 97 % (95-100); PCO2 ABG 36.8 mmHg (35-45); PO2 ABG 87 mmHg (80-100); TCO2 ABG 23 mmol/L (21-31); pH ABG 7.38 (7.35-7.45)
--- NOTE | 2020-09-16 10:59 | PC.NURSE ---
10:30 pt transported via [facility], critical care transport with NS running at 125 ml/hr, levophed gtt running at 5mcg/min. covid test verified negative by calling lab, results not showing yet in chart. report to nichole mercedes rn [place] [id number] [phone]
--- NOTE | 2020-09-16 11:17 | PC.NURSE ---
[facility] to give ffp under their care and medical assistant secretary orders. notified md and lab, we are not giving that product out of our supply
[2020-09-17 15:15] LABS: Ionized Calcium 3.9 mg/dL (4.5-5.6)
== END 2020-09-16 10:45 | disposition short-term general hospital (02) ==
PROVIDERS: Emergency Medicine; Emergency Provider Emergency Medicine
DX: K62.5 Hemorrhage of anus and rectum (principal); J90 Pleural effusion, not elsewhere classified; I95.9 Hypotension, unspecified; R79.89 Other specified abnormal findings of blood chemistry; Z95.0 Presence of cardiac pacemaker; Z79.01 Long term (current) use of anticoagulants; Z20.822 Contact with and (suspected) exposure to COVID-19
CPT/HCPCS: 36415; 36430; 36573; 36600; 51702; 74177; 80048; 80053; 81001; 82330; 82805; 83605; 83690; 83880; 85007; 85014; 85018; 85025; 85610; 85730; 86850; 86900; 86901; 86927; 87086; 87635; 93005; 96361; 96365; 96366; 96367; 96375; 96376; 99285; 99291; 99292; C9803; P9016; J2270; J7168